=== PATIENT | female | born 1955 | race Caucasian/White ===

== ENCOUNTER 2017-05-18 13:55 | Inpatient (IN) | payer OTHER ==
[~2017-05-18] VITALS: Ht 165.1 cm; Wt 117.0 kg
[2017-05-18 18:07] VITALS: BP 109/75
[2017-05-18] MEDS ORDERED: SODIUM CHLORIDE 0.9% 1,000 ML IV SCH (19:19)
[2017-05-18] MEDS ORDERED: ASPI-496 PO (19:30)
[2017-05-18] MEDS ORDERED: ACETAMINOPHEN 325 MG TABLET PO PRN (19:30)
[2017-05-18] MEDS ORDERED: OMEG100023 PO (19:30)
[2017-05-18] MEDS ORDERED: INSU100I13 SQ-INSULIN (19:30)
[2017-05-18] MEDS ORDERED: TRAM50TA2 PO (19:30)
[2017-05-18] MEDS ORDERED: LISI10TA2 PO (19:30)
[2017-05-18] MEDS ORDERED: LACT1CAP11 PO (19:30)
[2017-05-18] MEDS ORDERED: DEXTROSE 50%, 50ML SYRINGE IVPush PRN (19:30)
[2017-05-18] MEDS ORDERED: LEVO100T PO (19:30)
[2017-05-18] MEDS ORDERED: GLUCAGON 1 MG IM PRN (19:30)
[2017-05-18] MEDS ORDERED: DEXTROSE 4 GM TAB.CHEW PO PRN (19:30)
[2017-05-18 19:44] LABS: BLOOD UREA NITROGEN 82 mg/dL (7-18)
[2017-05-18 19:46] LABS: DIFF TOTAL CELLS COUNTED 100 CELL DIFF
[2017-05-18 19:51] LABS: VERIFY COUNTS? YES
[2017-05-18] MEDS ORDERED: PLEASE ENTER HEIGHT AND WEIGHT MC SCH (20:00)
[2017-05-18 20:24] VITALS: BP 104/64
[2017-05-18] MEDS: SODIUM CHLORIDE FLUSH 10ML SYR IVF SCH (20:49)
[2017-05-18] MEDS: SODIUM CHLORIDE 0.9% 1,000 ML IV SCH (21:01)
[2017-05-18] MEDS: FAMOTIDINE 20 MG TABLET PO SCH (21:45)
[2017-05-18] MEDS: TEMAZEPAM 15 MG CAPSULE PO PRN (21:45)
[2017-05-18] MEDS: HEPARIN 5,000 UNITS/ML, 1ML SQ SCH (21:45)
[2017-05-18] MEDS: morphine SULFATE 10 MG/ML, 1ML IVPush PRN (21:52)
[2017-05-18] MEDS: INSULIN ASPART 100 UNITS/ML, PEN SQ-INSULIN SCH (21:54)
[2017-05-18] MEDS: INSULIN DETEMIR 100 UNITS/ML, PEN SQ-INSULIN SCH (21:55)
[2017-05-19] VITALS (8 sets, daily range): BP systolic 83–107; BP diastolic 42–66
[2017-05-19] MEDS: SODIUM CHLORIDE 0.9% 1,000 ML IV SCH (04:03)
[2017-05-19] MEDS: morphine SULFATE 10 MG/ML, 1ML IVPush PRN ×4 (04:03→20:05)
[2017-05-19] MEDS: METOCLOPRAMIDE 5 MG/ML, 2ML IVPush SCH ×2 (04:08→16:08)
[2017-05-19] MEDS: HEPARIN 5,000 UNITS/ML, 1ML SQ SCH ×3 (04:08→20:09)
[2017-05-19] MEDS: LEVOTHYROXINE 100 MCG TABLET PO SCH (05:37)
[2017-05-19 06:09] LABS: BLOOD UREA NITROGEN 81 mg/dL (7-18)
[2017-05-19] MEDS: INSULIN ASPART 100 UNITS/ML, PEN SQ-INSULIN SCH ×4 (07:00→20:05)
[2017-05-19] MEDS ORDERED: MAGNESIUM SULFATE PMX 2GM/50ML 50 ML IV ONE (07:30)
[2017-05-19] MEDS: SODIUM CHLORIDE FLUSH 10ML SYR IVF SCH ×2 (08:58→20:04)
[2017-05-19] MEDS: FAMOTIDINE 20 MG TABLET PO SCH (08:58)
[2017-05-19] MEDS: INSULIN DETEMIR 100 UNITS/ML, PEN SQ-INSULIN SCH ×2 (08:59→20:06)
[2017-05-19] MEDS: ONDANSETRON 2MG/ML, 2ML IVPush PRN ×2 (13:54→20:05)
[2017-05-19] MEDS ORDERED: SODIUM CHLORIDE 0.9% 1,000ML IVBOLUS ONE (14:00)
[2017-05-19] MEDS: TEMAZEPAM 15 MG CAPSULE PO PRN (21:38)
[2017-05-20] MEDS: morphine SULFATE 10 MG/ML, 1ML IVPush PRN ×6 (01:00→23:24)
[2017-05-20] MEDS: SODIUM CHLORIDE 0.9% 1,000 ML IV SCH (01:10)
[2017-05-20 02:00] VITALS: BP 102/54
[2017-05-20] MEDS: METOCLOPRAMIDE 5 MG/ML, 2ML IVPush SCH ×2 (05:01→18:52)
[2017-05-20] MEDS: HEPARIN 5,000 UNITS/ML, 1ML SQ SCH ×3 (05:01→20:37)
[2017-05-20] MEDS: LEVOTHYROXINE 100 MCG TABLET PO SCH (05:01)
[2017-05-20 05:54] LABS: ASPARTATE AMINO TRANSFERASE 14 U/L (15-37); BLOOD UREA NITROGEN 96 mg/dL (7-18)
[2017-05-20 05:59] LABS: BLOOD UREA NITROGEN 95 mg/dL (7-18)
[2017-05-20] MEDS: ONDANSETRON 2MG/ML, 2ML IVPush PRN ×3 (06:01→23:24)
[2017-05-20 06:07] LABS: TOTAL IRON BINDING CAPACITY 263 mcg/dL (250-450)
[2017-05-20 06:20] LABS: DIFF TOTAL CELLS COUNTED 100 CELL DIFF
[2017-05-20 06:23] LABS: VERIFY COUNTS? YES
[2017-05-20] MEDS: INSULIN ASPART 100 UNITS/ML, PEN SQ-INSULIN SCH ×4 (07:00→20:39)
[2017-05-20 07:41] VITALS: BP 90/55
[2017-05-20] MEDS: INSULIN DETEMIR 100 UNITS/ML, PEN SQ-INSULIN SCH ×2 (09:00→20:38)
[2017-05-20] MEDS: FAMOTIDINE 20 MG TABLET PO SCH (09:00)
[2017-05-20] MEDS: SODIUM CHLORIDE FLUSH 10ML SYR IVF SCH ×2 (09:00→20:38)
[2017-05-20] MEDS ORDERED: SODIUM BICARBONATE 650 MG TABLET PO SCH (11:00)
[2017-05-20] MEDS: LACTATED RINGERS 1,000 ML IV SCH (13:17)
[2017-05-20 14:00] VITALS: BP 103/60
[2017-05-20] MEDS ORDERED: SODIUM CHLORIDE 0.9% 1,000 ML IV SCH (19:19)
[2017-05-20 19:25] VITALS: BP 103/67
[2017-05-20] MEDS: TEMAZEPAM 15 MG CAPSULE PO PRN (20:37)
[2017-05-21 04:40] VITALS: BP 110/68
[2017-05-21] MEDS: METOCLOPRAMIDE 5 MG/ML, 2ML IVPush SCH ×2 (05:02→17:27)
[2017-05-21] MEDS: morphine SULFATE 10 MG/ML, 1ML IVPush PRN ×5 (05:02→18:36)
[2017-05-21] MEDS: HEPARIN 5,000 UNITS/ML, 1ML SQ SCH ×3 (05:02→21:35)
[2017-05-21] MEDS: LEVOTHYROXINE 100 MCG TABLET PO SCH (05:03)
[2017-05-21] MEDS: LACTATED RINGERS 1,000 ML IV SCH ×2 (05:03→20:16)
[2017-05-21 06:00] LABS: BLOOD UREA NITROGEN 80 mg/dL (7-18)
[2017-05-21] MEDS: INSULIN ASPART 100 UNITS/ML, PEN SQ-INSULIN SCH ×4 (07:00→21:37)
[2017-05-21 07:03] VITALS: BP 101/59
[2017-05-21] MEDS: SODIUM CHLORIDE FLUSH 10ML SYR IVF SCH ×2 (08:16→20:32)
[2017-05-21] MEDS: FAMOTIDINE 20 MG TABLET PO SCH (08:16)
[2017-05-21] MEDS: INSULIN DETEMIR 100 UNITS/ML, PEN SQ-INSULIN SCH ×2 (09:00→21:00)
[2017-05-21] MEDS: ONDANSETRON 2MG/ML, 2ML IVPush PRN ×2 (12:05→20:32)
[2017-05-21 14:00] VITALS: BP 125/85
[2017-05-21 18:38] VITALS: BP 120/68
[2017-05-21] MEDS ORDERED: MORPHINE SULFATE 4 MG/ML, 1ML ONE (21:29)
[2017-05-22 02:02] VITALS: BP 136/77
[2017-05-22] MEDS ORDERED: MORPHINE SULFATE 4 MG/ML, 1ML ONE ×2 (04:03→07:43)
[2017-05-22] MEDS: morphine SULFATE 10 MG/ML, 1ML IVPush PRN ×2 (04:11→07:51)
[2017-05-22] MEDS: METOCLOPRAMIDE 5 MG/ML, 2ML IVPush SCH ×2 (04:11→15:15)
[2017-05-22] MEDS: TEMAZEPAM 15 MG CAPSULE PO PRN ×2 (04:11→21:24)
[2017-05-22] MEDS: HEPARIN 5,000 UNITS/ML, 1ML SQ SCH ×3 (06:34→21:24)
[2017-05-22] MEDS: LEVOTHYROXINE 100 MCG TABLET PO SCH (06:34)
[2017-05-22] MEDS: INSULIN ASPART 100 UNITS/ML, PEN SQ-INSULIN SCH ×4 (07:00→21:25)
[2017-05-22 07:45] VITALS: BP 116/88
[2017-05-22] MEDS: SODIUM CHLORIDE FLUSH 10ML SYR IVF SCH ×2 (07:50→21:00)
[2017-05-22] MEDS: FAMOTIDINE 20 MG TABLET PO SCH (07:50)
[2017-05-22] MEDS: INSULIN DETEMIR 100 UNITS/ML, PEN SQ-INSULIN SCH ×2 (07:51→21:00)
[2017-05-22 09:37] LABS: BLOOD UREA NITROGEN 61 mg/dL (7-18)
[2017-05-22] MEDS: OXYcodone IR 5MG TABLET PO PRN ×3 (10:59→21:24)
[2017-05-22] MEDS: LACTATED RINGERS 1,000 ML IV SCH ×2 (10:59→22:40)
[2017-05-22] MEDS: LORazepam 1MG TABLET PO PRN ×2 (13:04→21:24)
[2017-05-22 14:07] VITALS: BP 109/72
[2017-05-22 14:07] LABS: UR ALPHA-1-GLOBULIN 3.3 % (.); UR ALPHA-2-GLOBULIN 6.9 % (.); UR BETA GLOBULIN 16.6 % (.); UR GAMMA GLOBULIN 23.2 % (.); UR M-SPIKE % Not Observed % (Not Observed)
[2017-05-22 19:08] VITALS: BP 130/86
[2017-05-23 02:00] VITALS: BP 110/71
[2017-05-23] MEDS: OXYcodone IR 5MG TABLET PO PRN ×3 (02:32→10:54)
[2017-05-23] MEDS: METOCLOPRAMIDE 5 MG/ML, 2ML IVPush SCH (06:38)
[2017-05-23] MEDS: LEVOTHYROXINE 100 MCG TABLET PO SCH (06:38)
[2017-05-23] MEDS: HEPARIN 5,000 UNITS/ML, 1ML SQ SCH (06:38)
[2017-05-23] MEDS: INSULIN ASPART 100 UNITS/ML, PEN SQ-INSULIN SCH ×2 (07:00→11:00)
[2017-05-23 07:02] VITALS: BP 115/72
[2017-05-23] MEDS: INSULIN DETEMIR 100 UNITS/ML, PEN SQ-INSULIN SCH (09:00)
[2017-05-23] MEDS: FAMOTIDINE 20 MG TABLET PO SCH (09:57)
[2017-05-23] MEDS: SODIUM CHLORIDE FLUSH 10ML SYR IVF SCH (09:58)
[2017-05-23] MEDS: LORazepam 1MG TABLET PO PRN (11:25)
[2017-05-26 13:06] LABS: A/G RATIO 0.8 (0.7-1.7); ALBUMIN 3.2 g/dL (2.9-4.4); ALPHA-1-GLOBULIN 0.3 g/dL (0.0-0.4); BETA GLOBULIN 0.9 g/dL (0.7-1.3); GAMMA GLOBULIN 1.6 g/dL (0.4-1.8)
== END 2017-05-23 13:07 | disposition home or self-care (01) | DRG 683 ==
LOC: 4WST 17:55 → DCLOUNGE 05-23 12:01
PROVIDERS: ADMIT Hospitalist; ATTEND Family Medicine
PROC: 0D9670Z Drainage of Stomach with Drainage Device, Via Natural or Artificial Opening (ICD-10-PCS; principal; 2017-05-19)
DX: N17.9 Acute kidney failure, unspecified (principal); E87.1 Hypo-osmolality and hyponatremia; E87.2 Acidosis; K43.6 Other and unspecified ventral hernia with obstruction, without gangrene; Z68.41 Body mass index [BMI] 40.0-44.9, adult; N18.4 Chronic kidney disease, stage 4 (severe); D64.9 Anemia, unspecified; D72.825 Bandemia; E03.9 Hypothyroidism, unspecified; E11.22 Type 2 diabetes mellitus with diabetic chronic kidney disease; E11.65 Type 2 diabetes mellitus with hyperglycemia; E83.42 Hypomagnesemia; E83.52 Hypercalcemia; I12.9 Hypertensive chronic kidney disease with stage 1 through stage 4 chronic kidney disease, or unspecified chronic kidney disease; K43.9 Ventral hernia without obstruction or gangrene; E66.01 Morbid (severe) obesity due to excess calories; E86.9 Volume depletion, unspecified; G89.29 Other chronic pain; B18.2 Chronic viral hepatitis C; Z79.82 Long term (current) use of aspirin; Z79.899 Other long term (current) drug therapy; Z79.4 Long term (current) use of insulin; Z88.8 Allergy status to other drugs, medicaments and biological substances; Z83.3 Family history of diabetes mellitus; Z88.6 Allergy status to analgesic agent
CPT/HCPCS: 36415; 74000; 74020; 74176; 74250; 80048; 80053; 80069; 81001; 82306; 82436; 82550; 82570; 82728; 82962; 83036; 83540; 83550; 83605; 83735; 83930; 83935; 83970; 84100; 84133; 84145; 84155; 84156; 84165; 84166; 84300; 85025; 87040; 87324; J1644; J1815; J2405; J2270; J2765; J3475; J7030; J7120

== ENCOUNTER 2017-06-13 18:27 | Inpatient (IN) | payer MEDICARE, OTHER ==
[~2017-06-13] VITALS: Ht 165.1 cm; Wt 117.0 kg
[~2017-06-13 18:27] MED LIST: ASPI-496 PO; INSU100I13 SQ-INSULIN; LACT1CAP11 PO; LEVO100T PO; LISI10TA2 PO; OMEG100023 PO; TRAM50TA2 PO
[2017-06-13] MEDS ORDERED: ONDANSETRON 2MG/ML, 2ML IVPush ONE (19:00)
[2017-06-13] MEDS ORDERED: FAMOTIDINE 20 MG/2 ML IVP ONE (19:00)
[2017-06-13] MEDS ORDERED: SODIUM CHLORIDE FLUSH 10ML SYR IVF ONE (19:00)
[2017-06-13] MEDS ORDERED: FAMOTIDINE 20 MG/2 ML ONE (19:08)
[2017-06-13] MEDS ORDERED: ONDANSETRON 2MG/ML, 2ML ONE ×2 (19:08→22:27)
[2017-06-13] MEDS ORDERED: MORPHINE SULFATE 4 MG/ML, 1ML ONE ×2 (19:08→22:27)
[2017-06-13 19:19] LABS: HEMATOCRIT 38.4 % (34.6-47.8); HEMOGLOBIN 12.6 g/dL (11.7-16.4); WHITE BLOOD COUNT 19.9 x10^3/uL (3.4-10)
[2017-06-13 19:28] LABS: ASPARTATE AMINO TRANSFERASE 17 U/L (15-37); BLOOD UREA NITROGEN 48 mg/dL (7-18)
[2017-06-13] MEDS ORDERED: SODIUM CHLORIDE 0.9%, 500ML IVBOLUS ONE (19:30)
[2017-06-13] MEDS: LACTATED RINGERS 1,000 ML IV SCH ×3 (20:17→23:36)
[2017-06-13] MEDS: MORPHINE SULFATE 4 MG/ML, 1ML IVPush PRN ×2 (20:20→22:30)
[2017-06-13] MEDS ORDERED: CEFTRIAXONE PMX 1GM/50ML 50 ML ONE (21:19)
[2017-06-13] MEDS ORDERED: CEFTRIAXONE PMX 1GM/50ML 50 ML IV ONE (21:30)
[2017-06-13] MEDS ORDERED: NS + 20MEQ KCL 1,000 ML IV SCH (21:33)
[2017-06-13 21:47] LABS: PATH.CAST-FLAG NOT PRESENT; SPERM-FLAG NOT PRESENT; SRC-FLAG NOT PRESENT; XTAL-FLAG NOT PRESENT; YLC-FLAG NOT PRESENT
[2017-06-13] MEDS: ONDANSETRON 2MG/ML, 2ML IVPush PRN (22:29)
[2017-06-14 01:15] VITALS: BP 105/71
[2017-06-14 01:37] VITALS: BP 113/78
[2017-06-14] MEDS: HYDROmorphone 2 MG/ML, 1ML IVPush PRN ×6 (02:21→23:00)
[2017-06-14] MEDS: ONDANSETRON 2MG/ML, 2ML IVPush PRN ×3 (04:43→23:00)
[2017-06-14] MEDS ORDERED: MAGNESIUM SULFATE PMX 2GM/50ML 50 ML IV ONE (06:30)
[2017-06-14 06:56] LABS: HEMOGLOBIN 12.1 g/dL (11.7-16.4); WHITE BLOOD COUNT 8.7 x10^3/uL (3.4-10)
[2017-06-14 07:01] LABS: ASPARTATE AMINO TRANSFERASE 14 U/L (15-37); BLOOD UREA NITROGEN 49 mg/dL (7-18)
[2017-06-14 07:17] VITALS: BP 117/79
[2017-06-14] MEDS: INSULIN ASPART 100 UNITS/ML, PEN SQ-INSULIN SCH ×4 (07:30→21:00)
[2017-06-14] MEDS: LEVOTHYROXINE 100 MCG TABLET PO SCH (09:07)
[2017-06-14] MEDS: SODIUM CHLORIDE 0.9% 1,000 ML IV SCH ×2 (09:56→20:52)
[2017-06-14] MEDS: CEFTRIAXONE PMX 1GM/50ML 50 ML IV SCH (09:56)
[2017-06-14] MEDS: LACTATED RINGERS 1,000 ML IV SCH (10:00)
[2017-06-14 13:57] VITALS: BP 101/69
[2017-06-14 18:43] VITALS: BP 121/60
[2017-06-15 01:09] VITALS: BP 92/63
[2017-06-15] MEDS: HYDROmorphone 2 MG/ML, 1ML IVPush PRN ×8 (02:09→21:46)
[2017-06-15] MEDS: SODIUM CHLORIDE 0.9% 1,000 ML IV SCH ×3 (03:42→21:45)
[2017-06-15] MEDS: LEVOTHYROXINE 100 MCG TABLET PO SCH (05:41)
[2017-06-15] MEDS: ONDANSETRON 2MG/ML, 2ML IVPush PRN ×3 (05:41→18:25)
[2017-06-15] MEDS: INSULIN ASPART 100 UNITS/ML, PEN SQ-INSULIN SCH ×4 (05:50→18:29)
[2017-06-15] MEDS: CEFTRIAXONE PMX 1GM/50ML 50 ML IV SCH (08:04)
[2017-06-15 08:06] VITALS: BP 97/55
[2017-06-15 13:46] VITALS: BP 116/68
[2017-06-15 19:25] VITALS: BP 85/53
[2017-06-16] MEDS: HYDROmorphone 2 MG/ML, 1ML IVPush PRN ×7 (01:26→23:00)
[2017-06-16] MEDS: INSULIN ASPART 100 UNITS/ML, PEN SQ-INSULIN SCH ×4 (01:27→18:00)
[2017-06-16] MEDS: ONDANSETRON 2MG/ML, 2ML IVPush PRN ×4 (02:22→22:19)
[2017-06-16 04:20] VITALS: BP 116/63
[2017-06-16] MEDS: SODIUM CHLORIDE 0.9% 1,000 ML IV SCH ×2 (05:30→12:00)
[2017-06-16 07:01] VITALS: BP 112/72
[2017-06-16] MEDS: CEFTRIAXONE PMX 1GM/50ML 50 ML IV SCH (07:03)
[2017-06-16] MEDS: LEVOTHYROXINE 100 MCG INJ IVPush SCH (08:45)
[2017-06-16] MEDS ORDERED: LEVOTHYROXINE 50 MCG TABLET PO SCH (09:00)
[2017-06-16 10:37] LABS: BLOOD UREA NITROGEN 39 mg/dL (7-18)
[2017-06-16 10:44] LABS: HEMATOCRIT 33.6 % (34.6-47.8); HEMOGLOBIN 11.1 g/dL (11.7-16.4); WHITE BLOOD COUNT 12.8 x10^3/uL (3.4-10)
[2017-06-16 13:46] VITALS: BP 112/75
[2017-06-16 20:12] VITALS: BP 138/84
[2017-06-17] MEDS: INSULIN ASPART 100 UNITS/ML, PEN SQ-INSULIN SCH ×4 (00:04→18:31)
[2017-06-17] MEDS: SODIUM CHLORIDE 0.9% 1,000 ML IV SCH ×3 (00:20→18:30)
[2017-06-17] MEDS: HYDROmorphone 2 MG/ML, 1ML IVPush PRN ×6 (02:00→21:12)
[2017-06-17 02:45] VITALS: BP 111/67
[2017-06-17] MEDS: ONDANSETRON 2MG/ML, 2ML IVPush PRN ×3 (04:38→18:31)
[2017-06-17 05:58] LABS: HEMATOCRIT 34.3 % (34.6-47.8); HEMOGLOBIN 11.3 g/dL (11.7-16.4); WHITE BLOOD COUNT 14.6 x10^3/uL (3.4-10)
[2017-06-17 06:02] LABS: BLOOD UREA NITROGEN 28 mg/dL (7-18)
[2017-06-17 07:50] VITALS: BP 122/80
[2017-06-17] MEDS: LEVOTHYROXINE 100 MCG INJ IVPush SCH (08:15)
[2017-06-17] MEDS: CEFTRIAXONE PMX 1GM/50ML 50 ML IV SCH (08:15)
[2017-06-17 14:41] VITALS: BP 142/93
[2017-06-17] MEDS ORDERED: FENTANYL PF 100 MCG/2ML ONE (15:22)
[2017-06-17] MEDS ORDERED: SUCCINYLCHOLINE 20 MG/ML, 10ML ONE (15:23)
[2017-06-17] MEDS ORDERED: ROCURONIUM 10 MG/ML ONE (15:23)
[2017-06-17] MEDS ORDERED: PROPOFOL 10 MG/ML, 20ML ONE (15:23)
[2017-06-17] MEDS ORDERED: FENTANYL PF 100 MCG/2ML IV PRN (16:30)
[2017-06-17 20:00] VITALS: BP 135/88
[2017-06-18] VITALS: BP 99/67
[2017-06-18] MEDS: HYDROmorphone 2 MG/ML, 1ML IVPush PRN ×8 (01:08→23:55)
[2017-06-18] MEDS: ONDANSETRON 2MG/ML, 2ML IVPush PRN ×4 (01:08→20:46)
[2017-06-18] MEDS: SODIUM CHLORIDE 0.9% 1,000 ML IV SCH ×3 (02:26→20:47)
[2017-06-18 05:10] LABS: HEMATOCRIT 32.7 % (34.6-47.8); HEMOGLOBIN 10.6 g/dL (11.7-16.4); WHITE BLOOD COUNT 12.9 x10^3/uL (3.4-10)
[2017-06-18 05:23] LABS: BLOOD UREA NITROGEN 22 mg/dL (7-18)
[2017-06-18 07:35] VITALS: BP 115/69
[2017-06-18] MEDS: CEFTRIAXONE PMX 1GM/50ML 50 ML IV SCH (07:42)
[2017-06-18] MEDS: LEVOTHYROXINE 100 MCG INJ IVPush SCH (08:01)
[2017-06-18] MEDS: INSULIN ASPART 100 UNITS/ML, PEN SQ-INSULIN SCH ×4 (08:03→17:55)
[2017-06-18 12:55] VITALS: BP 140/84
[2017-06-18 19:32] VITALS: BP 132/77
[2017-06-19 00:53] VITALS: BP 126/78
[2017-06-19] MEDS: ONDANSETRON 2MG/ML, 2ML IVPush PRN ×3 (03:30→18:41)
[2017-06-19] MEDS: HYDROmorphone 2 MG/ML, 1ML IVPush PRN ×6 (03:30→21:48)
[2017-06-19] MEDS: SODIUM CHLORIDE 0.9% 1,000 ML IV SCH (05:27)
[2017-06-19 05:43] LABS: HEMATOCRIT 30.3 % (34.6-47.8); HEMOGLOBIN 9.8 g/dL (11.7-16.4)
[2017-06-19 05:53] LABS: BLOOD UREA NITROGEN 20 mg/dL (7-18)
[2017-06-19 07:40] VITALS: BP 116/66
[2017-06-19] MEDS: CEFTRIAXONE PMX 1GM/50ML 50 ML IV SCH (07:48)
[2017-06-19] MEDS: INSULIN ASPART 100 UNITS/ML, PEN SQ-INSULIN SCH ×5 (07:48→20:53)
[2017-06-19] MEDS: LEVOTHYROXINE 100 MCG INJ IVPush SCH (07:50)
[2017-06-19] MEDS: D5%-0.45NACL+KCL 20MEQ 1,000 ML IV SCH ×2 (07:56→20:49)
[2017-06-19] MEDS: POLYETHYLENE GLYCOL 17 GM PACKET PO SCH ×3 (11:08→20:53)
[2017-06-19 13:55] VITALS: BP 131/80
[2017-06-19 18:59] VITALS: BP 146/79
[2017-06-20] MEDS: HYDROmorphone 2 MG/ML, 1ML IVPush PRN ×6 (01:55→21:15)
[2017-06-20 01:57] VITALS: BP 112/67
[2017-06-20] MEDS: ONDANSETRON 2MG/ML, 2ML IVPush PRN ×4 (01:59→21:13)
[2017-06-20] MEDS: POLYETHYLENE GLYCOL 17 GM PACKET PO SCH ×4 (05:48→21:15)
[2017-06-20 06:14] LABS: HEMATOCRIT 30.5 % (34.6-47.8); HEMOGLOBIN 9.9 g/dL (11.7-16.4); WHITE BLOOD COUNT 15.5 x10^3/uL (3.4-10)
[2017-06-20 06:25] LABS: BLOOD UREA NITROGEN 15 mg/dL (7-18)
[2017-06-20 06:30] VITALS: BP 133/84
[2017-06-20 06:46] LABS: DIFF TOTAL CELLS COUNTED 100 CELL DIFF
[2017-06-20 07:00] LABS: VERIFY COUNTS? YES
[2017-06-20] MEDS: INSULIN ASPART 100 UNITS/ML, PEN SQ-INSULIN SCH ×4 (07:32→21:17)
[2017-06-20] MEDS: CEFTRIAXONE PMX 1GM/50ML 50 ML IV SCH (07:33)
[2017-06-20] MEDS: LEVOTHYROXINE 100 MCG INJ IVPush SCH (07:33)
[2017-06-20] MEDS: D5%-0.45NACL+KCL 20MEQ 1,000 ML IV SCH ×2 (10:58→22:43)
[2017-06-20 14:48] VITALS: BP 126/68
[2017-06-20] MEDS ORDERED: GASTROGRAFIN 120 ML SOLN PO ONE (14:56)
[2017-06-20 18:43] VITALS: BP 120/78
[2017-06-21 01:10] VITALS: BP 142/85
[2017-06-21] MEDS: HYDROmorphone 2 MG/ML, 1ML IVPush PRN ×8 (01:15→23:52)
[2017-06-21 04:58] LABS: HEMATOCRIT 30.6 % (34.6-47.8); WHITE BLOOD COUNT 13.7 x10^3/uL (3.4-10)
[2017-06-21 05:08] LABS: BLOOD UREA NITROGEN 14 mg/dL (7-18)
[2017-06-21 05:12] LABS: ASPARTATE AMINO TRANSFERASE 20 U/L (15-37)
[2017-06-21 05:40] LABS: DIFF TOTAL CELLS COUNTED 100 CELL DIFF
[2017-06-21 05:42] LABS: VERIFY COUNTS? YES
[2017-06-21] MEDS: POLYETHYLENE GLYCOL 17 GM PACKET PO SCH (06:36)
[2017-06-21 06:54] VITALS: BP 115/76
[2017-06-21] MEDS: CEFTRIAXONE PMX 1GM/50ML 50 ML IV SCH (07:24)
[2017-06-21] MEDS: LEVOTHYROXINE 100 MCG INJ IVPush SCH (07:25)
[2017-06-21] MEDS: INSULIN ASPART 100 UNITS/ML, PEN SQ-INSULIN SCH ×4 (07:25→21:18)
[2017-06-21] MEDS: LACTATED RINGERS 1,000 ML IV SCH ×2 (09:49→20:14)
[2017-06-21] MEDS: ONDANSETRON 2MG/ML, 2ML IVPush PRN ×3 (10:10→23:18)
[2017-06-21] MEDS: D5%-0.45NACL+KCL 20MEQ 1,000 ML IV SCH (12:20)
[2017-06-21 15:41] VITALS: BP 140/82
[2017-06-21 19:46] VITALS: BP 141/88
[2017-06-21 20:20] VITALS: BP 134/81
[2017-06-22 01:30] VITALS: BP 95/69
[2017-06-22] MEDS: HYDROmorphone 2 MG/ML, 1ML IVPush PRN ×2 (02:42→05:30)
[2017-06-22] MEDS ORDERED: ONDANSETRON 2MG/ML, 2ML ONE (03:56)
[2017-06-22] MEDS: ONDANSETRON 2MG/ML, 2ML IVPush PRN ×2 (03:58→07:48)
[2017-06-22 05:30] LABS: HEMATOCRIT 38.4 % (34.6-47.8); HEMOGLOBIN 12.4 g/dL (11.7-16.4); WHITE BLOOD COUNT 13.3 x10^3/uL (3.4-10)
[2017-06-22] MEDS: LACTATED RINGERS 1,000 ML IV SCH ×2 (05:38→16:00)
[2017-06-22 05:40] LABS: ASPARTATE AMINO TRANSFERASE 23 U/L (15-37); BLOOD UREA NITROGEN 20 mg/dL (7-18)
[2017-06-22] MEDS ORDERED: SODIUM BICARB 8.4%, 50ML SYRINGE ONE ×5 (07:00→17:53)
[2017-06-22] MEDS ORDERED: CALCIUM CHLORIDE 10%, 10ML SYR ONE (07:00)
[2017-06-22] MEDS: INSULIN ASPART 100 UNITS/ML, PEN SQ-INSULIN SCH ×2 (07:44→10:42)
[2017-06-22] MEDS: LEVOTHYROXINE 100 MCG INJ IVPush SCH (07:47)
[2017-06-22] MEDS ORDERED: ATROPINE SYRINGE 0.1 MG/ML, 10ML ONE (08:00)
[2017-06-22] MEDS ORDERED: EPINEPHRINE SYRINGE 0.1 MG/ML, 10ML ONE ×4 (08:00→18:10)
[2017-06-22] MEDS ORDERED: DEXTROSE 50%, 50ML SYRINGE ONE (08:00)
[2017-06-22] MEDS ORDERED: LIDOCAINE 2% 100MG/5ML SYRINGE ONE ×2 (08:00)
[2017-06-22 08:43] VITALS: BP 64/50
[2017-06-22 09:20] VITALS: BP 70/55
[2017-06-22] MEDS ORDERED: SODIUM CHLORIDE 0.9%, 500ML IVBOLUS ONE ×2 (09:30→10:00)
[2017-06-22 09:53] VITALS: BP 77/50
[2017-06-22] MEDS ORDERED: BUPIVACAINE/PF-EPI 0.5% 1:200K ONE (09:56)
[2017-06-22 10:05] VITALS: BP 76/55
[2017-06-22] MEDS ORDERED: FENTANYL PF 100 MCG/2ML ONE ×2 (11:10)
[2017-06-22] MEDS ORDERED: MIDAZOLAM 1 MG/ML, 2ML ONE (11:10)
[2017-06-22] MEDS ORDERED: CALCIUM CHLORIDE 13.6 MEQ/10 ML ONE (11:22)
[2017-06-22] MEDS ORDERED: PHENYLEPHRINE 10 MG/ML ONE (11:22)
[2017-06-22] MEDS ORDERED: EPHEDRINE 50 MG/ML, 1ML ONE (11:22)
[2017-06-22] MEDS ORDERED: CEFOTETAN 2 GM ONE (11:22)
[2017-06-22] MEDS ORDERED: PROPOFOL 10 MG/ML, 20ML ONE (11:22)
[2017-06-22] MEDS ORDERED: ALBUMIN HUMAN 5% 500 ML ONE (12:52)
[2017-06-22 13:26] LABS: ABG COLLECTION SITE NOT DOCUMENTED; FIO2 NOT AVAILABLE %
[2017-06-22 13:35] LABS: HEMATOCRIT 34.7 % (34.6-47.8); HEMOGLOBIN 11.3 g/dL (11.7-16.4); WHITE BLOOD COUNT 13.9 x10^3/uL (3.4-10)
[2017-06-22 13:37] LABS: BLOOD UREA NITROGEN 29 mg/dL (7-18)
[2017-06-22] MEDS ORDERED: VASOPRESSIN 100 UNIT in SODIUM CHLORIDE 0.9% 495 ML IV PRN ×2 (14:00→16:10)
[2017-06-22] MEDS ORDERED: AMIODARONE 50 MG/ML, 3ML ONE (14:19)
[2017-06-22] MEDS ORDERED: DEXTROSE 5%, 100ML ONE (14:19)
[2017-06-22] MEDS ORDERED: VASOPRESSIN 20 UNIT/ML, 1ML ONE (14:19)
[2017-06-22] MEDS ORDERED: VANCOMYCIN PER PHARMACY MC PRN (14:30)
[2017-06-22] MEDS ORDERED: EPINEPHRINE 2 MG in SODIUM CHLORIDE 0.9% 248 ML IV PRN (14:30)
[2017-06-22] MEDS ORDERED: PIPERACILLIN/TAZO/PMX 4.5GM 100 ML IVPB ONE (14:30)
[2017-06-22] MEDS ORDERED: PIPERACILLIN/TAZO/PMX 4.5GM 100 ML IV SCH (14:30)
[2017-06-22] MEDS ORDERED: VANCOMYCIN 2,000 MG in SODIUM CHLORIDE 0.9% 500 ML IV ONE (14:30)
[2017-06-22] MEDS ORDERED: CODE BLUE RESPONSE XX ONE ×3 (14:30→19:00)
[2017-06-22] MEDS ORDERED: SODIUM BICARBONATE 1 MEQ/ML, 50ML VIAL IVPush ONE (15:30)
[2017-06-22] MEDS ORDERED: SODIUM ACETATE 150 MEQ in DEXTROSE 5% 1,000 ML IV SCH (15:30)
[2017-06-22] MEDS ORDERED: PHARMACOKINETIC CONSULTATION MC ONE (15:30)
[2017-06-22] MEDS ORDERED: PHARMACOKINETIC MONITORING MC PRN (15:30)
[2017-06-22] MEDS ORDERED: PIPERACILLIN/TAZO/PMX 3.375GM 50 ML IV SCH ×2 (15:30→20:00)
[2017-06-22 15:59] LABS: ABG COLLECTION SITE RIGHT BRACHIAL
[2017-06-22] MEDS ORDERED: EPINEPHRINE 16 MG in SODIUM CHLORIDE 0.9% 234 ML IV PRN (16:00)
[2017-06-22] MEDS ORDERED: SODIUM CHLORIDE 0.9% IV PRN (16:00)
[2017-06-22] MEDS ORDERED: EPINEPHRINE IV PRN (16:00)
[2017-06-22 16:02] LABS: HEMATOCRIT 34.1 % (34.6-47.8); HEMOGLOBIN 10.8 g/dL (11.7-16.4); WHITE BLOOD COUNT 26.9 x10^3/uL (3.4-10)
[2017-06-22 16:06] LABS: ASPARTATE AMINO TRANSFERASE 69 U/L (15-37); BLOOD UREA NITROGEN 27 mg/dL (7-18); IS PT STATUS REG ER OR PRE ER? NO
[2017-06-22] MEDS ORDERED: EPINEPHRINE 1 MG in SODIUM CHLORIDE 0.9% 249 ML IV PRN (16:10)
[2017-06-22 16:14] LABS: DIFF TOTAL CELLS COUNTED 100 CELL DIFF
[2017-06-22 16:16] LABS: VERIFY COUNTS? YES
[2017-06-22] MEDS ORDERED: ALBUTEROL/IPRATROPIUM 2.5MG/0.5MG, 3 ML INLINE SCH (16:30)
[2017-06-22] MEDS ORDERED: LIDOCAINE-MPF 1%, 2ML ENDO PRN (16:30)
[2017-06-22] MEDS ORDERED: NOREPINEPHRINE 4 MG in SODIUM CHLORIDE 0.9% 246 ML IV PRN (16:30)
[2017-06-22] MEDS ORDERED: MIDAZOLAM 1 MG/ML, 2ML IVPush PRN (16:30)
[2017-06-22] MEDS ORDERED: SODIUM CHLORIDE 0.9% 1,000ML IVBOLUS ONE (16:30)
[2017-06-22] MEDS ORDERED: PHARMACY MAY ADJ FOR RENAL FX MC SCH (16:30)
[2017-06-22] MEDS ORDERED: FENTANYL PF 100 MCG/2ML IVPush PRN (16:30)
[2017-06-22] MEDS ORDERED: AMIODARONE 900 MG in DEXTROSE 5% 482 ML IV PRN (17:30)
[2017-06-22] MEDS ORDERED: FILTER 0.22 MICRON IV PRN (17:30)
[2017-06-22] MEDS ORDERED: REGULAR INSULIN 62.5 UNITS in SODIUM CHLORIDE 0.9% 249.375 ML IV PRN (17:30)
[2017-06-22] MEDS ORDERED: AMIODARONE 150 MG in DEXTROSE 5% 100 ML IV ONE (17:30)
[2017-06-22] MEDS ORDERED: SODIUM BICARBONATE 8.4% 100 MEQ in DEXTROSE 5% 1,000 ML IV SCH (18:00)
[2017-06-22] MEDS ORDERED: MAGNESIUM SULFATE 1 GM/2 ML ONE (18:29)
[2017-06-23] MEDS ORDERED: PANTOPRAZOLE 40 MG IV IV SCH (09:00)
== END 2017-06-22 18:29 | disposition expired | DRG 329 ==
LOC: SUATTDRO 21:29 → ED 22:04 → EDIP 22:15 → 4NOR 23:24 → ICU 06-22 13:50 → UNDODISIN 06-22 18:29
PROVIDERS: ADMIT Internal Medicine; ATTEND Internal Medicine
PROC: 0T9B70Z Drainage of Bladder with Drainage Device, Via Natural or Artificial Opening (ICD-10-PCS; 2017-06-13)
PROC: 0D7M8DZ Dilation of Descending Colon with Intraluminal Device, Via Natural or Artificial Opening Endoscopic (ICD-10-PCS; 2017-06-17)
PROC: 0W9930Z Drainage of Right Pleural Cavity with Drainage Device, Percutaneous Approach (ICD-10-PCS; 2017-06-22)
PROC: 0DBA0ZZ Excision of Jejunum, Open Approach (ICD-10-PCS; principal; 2017-06-22 11:00)
DX: C18.7 Malignant neoplasm of sigmoid colon (principal); E43 Unspecified severe protein-calorie malnutrition; J96.00 Acute respiratory failure, unspecified whether with hypoxia or hypercapnia; I21.3 ST elevation (STEMI) myocardial infarction of unspecified site; I47.2 Ventricular tachycardia; J18.9 Pneumonia, unspecified organism; J81.0 Acute pulmonary edema; J81.1 Chronic pulmonary edema; N17.9 Acute kidney failure, unspecified; K56.60 Unspecified intestinal obstruction; N18.4 Chronic kidney disease, stage 4 (severe); E87.1 Hypo-osmolality and hyponatremia; Z68.41 Body mass index [BMI] 40.0-44.9, adult; E87.2 Acidosis; J93.9 Pneumothorax, unspecified; N39.0 Urinary tract infection, site not specified; Z99.11 Dependence on respirator [ventilator] status; I49.01 Ventricular fibrillation; D47.3 Essential (hemorrhagic) thrombocythemia; E03.9 Hypothyroidism, unspecified; E11.21 Type 2 diabetes mellitus with diabetic nephropathy; E11.22 Type 2 diabetes mellitus with diabetic chronic kidney disease; E66.01 Morbid (severe) obesity due to excess calories; E86.0 Dehydration; E87.5 Hyperkalemia; G89.29 Other chronic pain; I12.9 Hypertensive chronic kidney disease with stage 1 through stage 4 chronic kidney disease, or unspecified chronic kidney disease; K43.9 Ventral hernia without obstruction or gangrene; K57.90 Diverticulosis of intestine, part unspecified, without perforation or abscess without bleeding; N83.201 Unspecified ovarian cyst, right side; I95.9 Hypotension, unspecified; M54.9 Dorsalgia, unspecified; Z86.010 Personal history of colon polyps; Z87.11 Personal history of peptic ulcer disease
CPT/HCPCS: 36415; 36600; 71010; 74000; 74020; 74176; 74270; 76000; 80048; 80053; 81001; 82378; 82803; 82962; 83605; 83690; 83735; 84478; 84484; 85025; 85610; 87040; 87070; 87077; 87081; 87086; 87147; 87186; 87205; 88304; 88307; 92950; 93005; 93970; 94002; 96361; 96365; 96375; 96376; J0461; J0696; J1170; J1815; J2250; J2405; J2543; J2704; J3010; J3370; J3475; J3480; J7070; P9045; Q9963; C1769; C1874; J0171; J0282; J0330; J2370; J7030; J7040; J7050; J7120; S0028; S0074